=== PATIENT | male | born 1990 | race Two or more races ===

== ENCOUNTER 2019-03-04 06:36 | Emergency (ER) | payer SELFPAY ==
[~2019-03-04] VITALS: Ht 180.3 cm; Wt 108.9 kg
--- NOTE | 2019-03-04 07:05 | NUR ---
BIBSELF FROM HOME. TO ER BED 10. AAOX4. AMBULATORY. NO RESP DISTRESS NOTED. C/O R CHEST PAIN, SHARP CONSTANT PAIN WHEN BREATHING AND COUGHING 04/06. PT IS AFBRILE. DENIES N/V/D. PLACED ON MONITOR. AWAITING MD FOR EVAL.
--- NOTE | 2019-03-04 07:13 | NUR ---
DR YAO IS AT BEDSIDE FOR EVAL.
--- NOTE | 2019-03-04 07:21 | NUR ---
EKG AT BEDSIDE
--- NOTE | 2019-03-04 07:36 | NUR ---
REPORT GIVEN TO ORESTES NICK FOR DARIUSZ.
--- NOTE | 2019-03-04 07:37 | NUR ---
recvd report from annabel, patient is alert and oriented x4. he is able to make things known. breathing even and unlabored. will continue to monitor.
--- NOTE | 2019-03-04 07:59 | NUR ---
Patient discharged to home in stable condition. Written and verbal after care instructions given. Patient verbalizes understanding of instruction.
[2019-03-04 08:00] VITALS: BP 142/82
== END 2019-03-04 08:02 | disposition home or self-care (01) ==
LOC: ER 06:37
DX: R07.89 Other chest pain (principal); Z60.2 Problems related to living alone
CPT/HCPCS: 71045-TC